=== PATIENT | female | born 1950 | race Caucasian/White ===

== ENCOUNTER 2018-06-07 12:44 | Emergency (ER) | payer OTHER ==
[~2018-06-07] VITALS: Ht 152.4 cm; Wt 39.5 kg
[2018-06-07] MEDS ORDERED: PROFERRIN-FORT1 EACH (13:34)
[2018-06-07] MEDS ORDERED: AVAPRO150 MG (13:34)
== END 2018-06-07 19:53 | disposition home or self-care (01) ==
LOC: ER 12:44
DX: J20.9 Acute bronchitis, unspecified (principal)

== ENCOUNTER → 2018-06-07 | Emergency (ER) | payer OTHER ==
[~2018-06-07] MED LIST: AVAPRO150 MG; PROFERRIN-FORT1 EACH
== END | disposition left against medical advice (07) ==
LOC: ER 13:03
DX: Z53.20 Procedure and treatment not carried out because of patient's decision for unspecified reasons (principal)

== ENCOUNTER 2019-03-25 12:28 | Outpatient (CLI) | payer OTHER | END 2019-03-25 12:38 | disposition home or self-care (01) | LOC: MAMO-SONO 12:28 | DX: N60.12 Diffuse cystic mastopathy of left breast (principal); N60.11 Diffuse cystic mastopathy of right breast; R92.1 Mammographic calcification found on diagnostic imaging of breast; M89.8X8 Other specified disorders of bone, other site; R10.2 Pelvic and perineal pain; R10.84 Generalized abdominal pain; M85.88 Other specified disorders of bone density and structure, other site; M81.0 Age-related osteoporosis without current pathological fracture; Z12.31 Encounter for screening mammogram for malignant neoplasm of breast ==

== ENCOUNTER 2019-04-28 13:24 | Outpatient (CLI) | payer OTHER | END 2019-04-28 14:00 | disposition home or self-care (01) | LOC: NUCLEAR 13:24 | DX: M81.0 Age-related osteoporosis without current pathological fracture (principal) ==

== ENCOUNTER → 2020-06-16 | Outpatient (CLI) | payer OTHER | END | disposition home or self-care (01) | LOC: RAD 11:13 | PROVIDERS: ATTEND Internal Medicine Nephrology | DX: M25.552 Pain in left hip (principal); M25.551 Pain in right hip ==

== ENCOUNTER 2020-07-05 09:43 | Outpatient (CLI) | payer OTHER | END 2020-07-05 09:58 | disposition HB | LOC: MAMO-SONO 09:43 → NUCLEAR 10:00 | PROVIDERS: ATTEND Obstetrics & Gynecology Gynecology | DX: R92.0 Mammographic microcalcification found on diagnostic imaging of breast (principal); Z12.31 Encounter for screening mammogram for malignant neoplasm of breast; N60.11 Diffuse cystic mastopathy of right breast; N60.12 Diffuse cystic mastopathy of left breast; R10.2 Pelvic and perineal pain; R10.84 Generalized abdominal pain; M89.8X8 Other specified disorders of bone, other site; M85.88 Other specified disorders of bone density and structure, other site; M81.0 Age-related osteoporosis without current pathological fracture; N83.291 Other ovarian cyst, right side; N83.292 Other ovarian cyst, left side; R92.1 Mammographic calcification found on diagnostic imaging of breast ==

== ENCOUNTER → 2020-07-05 | Outpatient (CLI) | payer OTHER | END | disposition home or self-care (01) | LOC: NUCLEAR 10:44 | PROVIDERS: ATTEND Obstetrics & Gynecology Gynecology | DX: M81.0 Age-related osteoporosis without current pathological fracture (principal); M89.9 Disorder of bone, unspecified ==

== ENCOUNTER 2020-11-23 14:12 | Outpatient (CLI) | payer OTHER | END 2020-11-23 14:33 | disposition home or self-care (01) | LOC: NUCLEAR 14:12 | PROVIDERS: ATTEND Internal Medicine Endocrinology, Diabetes & Metabolism | DX: M81.0 Age-related osteoporosis without current pathological fracture (principal); E66.01 Morbid (severe) obesity due to excess calories ==

== ENCOUNTER 2020-12-13 11:28 | Outpatient (CLI) | payer OTHER | END 2020-12-17 15:05 | disposition home or self-care (01) | LOC: RAD 11:28 | PROVIDERS: ATTEND Internal Medicine Hematology & Oncology | DX: G31.89 Other specified degenerative diseases of nervous system (principal); D47.2 Monoclonal gammopathy ==

== ENCOUNTER 2021-05-06 08:23 | Outpatient (CLI) | payer OTHER | END 2021-05-06 08:32 | disposition home or self-care (01) | LOC: TOM 08:23 | PROVIDERS: ATTEND Internal Medicine Cardiovascular Disease | DX: M25.511 Pain in right shoulder (principal); R10.84 Generalized abdominal pain; K57.30 Diverticulosis of large intestine without perforation or abscess without bleeding ==

== ENCOUNTER 2023-02-19 09:53 | Outpatient (CLI) | payer OTHER | END 2023-02-19 10:10 | disposition home or self-care (01) | LOC: SONOGRAMA 09:53 | PROVIDERS: ATTEND Ophthalmology | DX: M75.52 Bursitis of left shoulder (principal) ==

== ENCOUNTER 2023-08-02 11:53 | Outpatient (CLI) | payer OTHER | END 2023-08-02 11:56 | disposition home or self-care (01) | LOC: MAMO-SONO 11:53 | PROVIDERS: ATTEND Obstetrics & Gynecology Gynecology | DX: R10.2 Pelvic and perineal pain (principal); R10.9 Unspecified abdominal pain; M89.9 Disorder of bone, unspecified; M85.9 Disorder of bone density and structure, unspecified; M81.0 Age-related osteoporosis without current pathological fracture; N60.19 Diffuse cystic mastopathy of unspecified breast; N60.12 Diffuse cystic mastopathy of left breast; N60.11 Diffuse cystic mastopathy of right breast; R92.1 Mammographic calcification found on diagnostic imaging of breast; N63.0 Unspecified lump in unspecified breast; Z12.31 Encounter for screening mammogram for malignant neoplasm of breast ==

== ENCOUNTER 2024-12-01 12:08 | Inpatient (IN) | payer OTHER ==
[~2024-12-01] VITALS: Ht 149.9 cm; Wt 44.0 kg
[2024-12-01] MEDS ORDERED: NORVASC2.5 M1 PO (12:30)
--- NOTE | 2024-12-01 12:30 | NUR ---
PTE ALERTA,ESTABLE Y ORIENTADA,.ESTA REFIERE QUE DESDE HACE VARIOS SHAFFER COMENZO CON EL DOLOR ABD
[2024-12-01] MEDS ORDERED: FAMOTIDINE/PF 20 MG in 0.9 % SODIUM CHLORIDE 8 ML IV PUSH STA (16:44)
[2024-12-01] MEDS ORDERED: BARIUM SULFATE 450 ML ORAL.SUSP PO ONE (16:45)
[2024-12-01] MEDS ORDERED: ONDANSETRON HCL 2 MG/ML VIAL IV ONE (16:45)
[2024-12-01] MEDS ORDERED: HYOSCYAMINE SULFATE 0.125 MG TAB.SUBL SL ONE (16:45)
[2024-12-01] MEDS ORDERED: 0.9 % SODIUM CHLORIDE 1,000 ML IV SCH ×2 (16:45→23:15)
[2024-12-01 17:44] LABS: BASO % 0.5 % (0.1-1.2); EOS # 0.11 (0.04-0.54); EOS % 1.0 % (0.7-7.0); LYMPH # 0.96 (1.18-3.74); LYMPH % 8.3 % (19.3-53.1); MEAN PLATELET VOLUME 11.20 fl (9.4-12.4); MONO # 0.88 (0.24-0.82); MONO % 7.7 % (4.7-12.5); NEUT # 9.46 (1.56-6.13); NEUT % 82.2 % (34.0-71.1); RED CELL DISTRIBUTION WIDTH 14.3 % (11.6-14.4)
[2024-12-01 18:00] LABS: ALT/SGPT 26.0 U/L (12-78); AST/SGOT 19.0 U/L (15-37); BILIRUBIN TOTAL 0.28 mg/dL (0.3-1.2); BUN CREA RATIO 21.0 (7.0-25.0); CREATININE SERUM 2.34 mg/dL (0.55-1.02); GFR 20.21; GLOBULINA 4.3 G/DL (2.4-3.5); GLUCOSE FASTING 97.0 mg/dL (65-100); OSMOLALITY SERUM 294.0 MOSM/KG (275-295)
[2024-12-01] MEDS ORDERED: CEFTRIAXONE SODIUM 1,000 MG VIAL IV ONE (22:15)
[2024-12-01] MEDS ORDERED: METRONIDAZOLE/SODIUM CHLORIDE 500 MG/100 ML PIGGYBACK IV ONE (22:15)
[2024-12-01] MEDS ORDERED: MORPHINE SULFATE 4 MG/ML VIAL IV ONE (22:30)
[2024-12-01] MEDS ORDERED: ACETAMINOPHEN 500 MG GEL..CAP PO PRN (23:15)
[2024-12-01] MEDS ORDERED: MORPHINE SULFATE 2 MG/ML SYRINGE IV PRN (23:15)
[2024-12-02 02:26] VITALS: BP 130/80
[2024-12-02 06:59] LABS: URINE APPEARANCE Clear; URINE BILIRRUBIN Negative (NEGATIVE); URINE BLOOD Negative; URINE COLOR Yellow; URINE GLUCOSE Negative (NEGATIVE); URINE KETONE Negative (NEGATIVE); URINE LEUKOCYTE Negative; URINE NITRATE Negative; URINE UROBILINOGEN 0.2 E.U./dl
[2024-12-02 07:00] LABS: URINE BACTERIA 19.1 uL (0.0-1933); URINE CAST 1.90 uL (0.0-1.40); URINE EPITHELIAL CELLS 7.5 uL (0.0-38.8); URINE RBC 2.4 uL (0.0-20.8); URINE WBC 10.6 uL (0.0-23.2)
[2024-12-02 07:11] LABS: URINE PROTEIN 300 (NEGATIVE)
[2024-12-02 07:15] LABS: INR 0.99
[2024-12-02 08:06] VITALS: BP 121/69; O2SAT 98
[2024-12-02] MEDS ORDERED: AMLODIPINE BESYLATE 5 MG TABLET PO SCH (09:00)
[2024-12-02] MEDS ORDERED: ENOXAPARIN SODIUM 40 MG/0.4 ML SYRINGE SUBCUTANEO SCH (09:00)
[2024-12-02] MEDS ORDERED: CEFTRIAXONE SODIUM 2,000 MG in 0.9 % SODIUM CHLORIDE 100 ML IV SCH (09:00)
[2024-12-02] MEDS ORDERED: FAMOTIDINE/PF 20 MG in 0.9 % SODIUM CHLORIDE 8 ML IV PUSH SCH (09:00)
[2024-12-02] MEDS ORDERED: RINGERS SOLUTION,LACTATED 1,000 ML IV SCH (10:30)
[2024-12-02] MEDS ORDERED: SODIUM POLYSTYRENE SULFONATE 30G/8 TSP PO NR (11:00)
[2024-12-02 12:30] VITALS: BP 126/71; O2SAT 100
[2024-12-02] MEDS ORDERED: SODIUM POLYSTYRENE SULFONATE 30G/8 TSP PO STA (14:57)
[2024-12-02 16:10] VITALS: BP 140/69; O2SAT 99
[2024-12-03 01:21] VITALS: BP 131/60; O2SAT 97
[2024-12-03] MEDS ORDERED: LEVOTHYROXINE SODIUM 25 MCG TABLET PO SCH (06:00)
[2024-12-03 06:55] LABS: BASO % 1.1 % (0.1-1.2); EOS # 0.36 (0.04-0.54); EOS % 6.5 % (0.7-7.0); LYMPH # 0.98 (1.18-3.74); LYMPH % 17.7 % (19.3-53.1); MEAN PLATELET VOLUME 11.90 fl (9.4-12.4); MONO # 0.48 (0.24-0.82); MONO % 8.6 % (4.7-12.5); NEUT # 3.66 (1.56-6.13); NEUT % 65.9 % (34.0-71.1); RED CELL DISTRIBUTION WIDTH 14.3 % (11.6-14.4)
[2024-12-03 07:29] LABS: ALT/SGPT 15.0 U/L (12-78); AST/SGOT 18.0 U/L (15-37); BILIRUBIN TOTAL 0.22 mg/dL (0.3-1.2); BUN CREA RATIO 16.0 (7.0-25.0); CREATININE SERUM 2.0 mg/dL (0.55-1.02); GFR 24.22; GLOBULINA 2.7 G/DL (2.4-3.5); GLUCOSE FASTING 77.0 mg/dL (65-100); OSMOLALITY SERUM 294.0 MOSM/KG (275-295)
[2024-12-03 08:00] VITALS: BP 113/66; O2SAT 97
[2024-12-03] MEDS ORDERED: SODIUM POLYSTYRENE SULFONATE 15 G/4 TSP TSP PO SCH (09:00)
[2024-12-03] MEDS ORDERED: ENOXAPARIN SODIUM 30 MG/0.3 ML SYRINGE SUBCUTANEO SCH (09:00)
[2024-12-03] MEDS ORDERED: AMINO ACIDS/PROTEIN HYDROLYS 30 ML BLIST.PACK PO SCH (09:59)
[2024-12-03] MEDS ORDERED: MAGNESIUM CHLORIDE 70 MG TABLET.DR PO STA (11:43)
[2024-12-03] MEDS ORDERED: INTESTINEX680 M1 PO (11:55)
[2024-12-03] MEDS ORDERED: METRONIDAZOLE500 MG PO (11:55)
[2024-12-03] MEDS ORDERED: AMOX-CLAV 500-1 EACH PO (11:55)
[2024-12-03] MEDS ORDERED: LEVSIN/SL0.125 MG SL (11:55)
[2024-12-03] MEDS ORDERED: COLACE100 MG PO (11:57)
[2024-12-03] MEDS ORDERED: TRAM1TAB98 PO (11:57)
== END 2024-12-03 15:40 | disposition home or self-care (01) | DRG 392 ==
LOC: ER 12:08 → SEC-K 23:15 → SURG 12-02 10:27
PROVIDERS: General Practice; ADMIT Internal Medicine; ATTEND Internal Medicine
PROC: BW21YZZ Computerized Tomography (CT Scan) of Abdomen and Pelvis using Other Contrast (ICD-10-PCS; principal; 2024-12-01)
DX: K57.32 Diverticulitis of large intestine without perforation or abscess without bleeding (principal); N17.9 Acute kidney failure, unspecified; N18.4 Chronic kidney disease, stage 4 (severe); I12.9 Hypertensive chronic kidney disease with stage 1 through stage 4 chronic kidney disease, or unspecified chronic kidney disease; E87.5 Hyperkalemia; E03.9 Hypothyroidism, unspecified; Z87.891 Personal history of nicotine dependence